=== PATIENT | female | born 1985 | race Caucasian/White ===

== ENCOUNTER 2018-07-18 16:18 | Inpatient (IN) | payer BC ==
[~2018-07-18] VITALS: Ht 167.6 cm; Wt 76.4 kg
[2018-07-18] VITALS (13 sets, daily range): BP systolic 109–130; BP diastolic 58–89; PULSE 69–86; TEMP 97.2–100
--- NOTE | 2018-07-18 16:10 | NUR ---
Pt arrives on unit from office per Dr. Bernstein with spouse. Orders for admission per provider. SVE /-3 with BS and STEVE during office visit with ctx. Changed into clean gown. EFM and toco applied. VSS. Admission assessment completed. Consents signed. IV started in LW. Labs drawn. LR and Yelena infusing. Pt tolerated well. Updated on POC. Oriented to room. Reactive FHR strip obtained. Pt request BB. Taken off monitors and on birthing ball.
[2018-07-18] MEDS ORDERED: PROFERRIN ES12 MG PO (16:38)
[2018-07-18] MEDS ORDERED: PRENATAL MVI (16:38)
[2018-07-18] MEDS ORDERED: OMEGA-3 1000 MG1 CAP PO (16:39)
[2018-07-18 17:15] LABS: BASO # 0.1 (0.0-0.2); BASO % 0.7 % (0.0-2.0); EOS # 0.1 (0.0-0.7); GRAN # 7.9 (1.4-6.5); GRAN % 68.6 % (42.2-75.2); HEMOGLOBIN 12.7 g/dl (12.5-16.0); LYMPH # 2.7 (1.2-3.4); LYMPH % 23.1 % (20.0-51.0); MEAN CELL VOLUME 92 fl (80.0-100.0); MEAN CORPUSCULAR HEMOGLOBIN 33 pg (27.0-31.0); MEAN CORPUSCULAR HGB CONC 36 g/dl (33.0-37.0); MEAN PLATELET VOLUME 11.8 fl (7.4-10.4); MONO # 0.7 (0.1-0.6); MONO % 5.6 % (1.7-9.3); PLATELET COUNT 188 K/mm3 (130-400); RED BLOOD COUNT 3.86 M/mm3 (4.10-5.30); REDCELL DISTRIBUTION WIDTH-CV 12.1 % (11.5-14.5)
[2018-07-18 17:20] LABS: HEMATOCRIT 35.6 % (37.0-47.0)
--- NOTE | 2018-07-18 18:15 | NUR ---
Report received from Rachael GREY. Pt in bed resting and wanting to ambulate when 30 minutes are completed. Plan of care explained to pt and questions answered. Call light within reach. 1847: FHR strip reactive. Pt off monitors to ambulate in hallway. Will continue to monitor.
--- NOTE | 2018-07-18 20:53 | NUR ---
Reactive FHR strip. Pt off monitors to use shower. SVE unchanged and feels hot on exam. Temp 99.4. Educated pt on waiting on shower at this time. Pt verbalizes understanding and questions answered. 2109: Pt assisted to LL position and monitors reapplied for closer monitoring. 2114: updated on pts status and orders received. See physican notification. 2121: New orders explained to pt and who verbalize understanding. Tylenol 1gram administered and LR bolus infusing without difficulties. Will continue to monitor. 2136: Pt feeling a lot of rectal pressure. Assisted to high mcneil position anf feeling some relief from pressure. Call light within reach. Will continue to monitor.
[2018-07-19] VITALS (14 sets, daily range): BP systolic 105–126; BP diastolic 51–98; PULSE 56–77; TEMP 97.5–98.7
--- NOTE | 2018-07-19 01:08 | NUR ---
Pt feeling a lot of pressure and urge to push. SVE 9/100/+1. Pt assisted to hands and knees position to help with some rectal pressure. 0127: Pt states she is feeling constant pressure even when she is not having contractions. SVE C/+2. Practive push completed at this time and pt moves vertex well. Plan of care explained to pt and family who verbalize understanding. 0131: called for delivery. See physican notification. RN remains at pts bedside assisting with pt to breath through contractions. 0144: at bedside for delivery. Pt assisted into footplates and prepped for delivery. Pt begins pushing with . 0158: Spontaneous vaginal delivery of viable male infant by . loose NC X1 reduced by . Mouth and nares suction per provider. Infant to mother's chest and care of assumed by Netta GREY. Cord clamped X2 and cut by pt's mother. 0201: Spontaneous delivery of intact placenta by . Pitocin started at 333mus/hr per protocol. Lidocaine administered vaginally for repair. Right periurethral and primary vaginal laceration repaired by . Fundus firm and midline. Bleeding minimal. Straight catherization with red jesu completed. Pericare provided. Pt repositioned in bed, pads changed and ice pack applied. Plan of care and safety precautions explained to pt who verberbalizes understanding. See labor summary and doctor dication. Call light within reach. 0245: Softball size clot noted with fundal message. Fundus firms up after message. Pitocin continuing to be administered per protocol. No free flow noted after clots. 0250: updated on pts bleeding. No new orders at this time. Pt updated on continuing to watch bleeding.
--- NOTE | 2018-07-19 04:20 | NUR ---
Pt wanting to move to room at this time. Fundus firm, midline and bleeding minimal. Pt assisted to EOB. Denies dizziness or lightheadedness. Pt ambulatory to bathroom, standby assist. Pt able to void. Pericare explained and provided. Mesh panties, pad, ice pack and tucks applied. Pt ambulatory to room 214 and oriented to room. Call light within reach.
--- NOTE | 2018-07-19 09:17 | NUR ---
Initial visit; Parents thanked [employer] for offering congratulations and God's blessings for the of their son. [employer] thanked family for choosing [facility].
[2018-07-20] MEDS ORDERED: IBU800 M1 PO (08:12)
[2018-07-20 08:45] VITALS: BP 118/75; PULSE 84; TEMP 97.8
[2018-07-20 15:49] VITALS: BP 98/66; PULSE 68; TEMP 97.7
[2018-07-20 20:00] VITALS: BP 105/77; PULSE 69; TEMP 97.9
[2018-07-21] VITALS: BP 111/69; PULSE 72; TEMP 98.7
[2018-07-21 04:00] VITALS: BP 88/54; PULSE 61; TEMP 97.6
[2018-07-21 08:08] VITALS: BP 111/75; PULSE 73
== END 2018-07-21 10:40 | disposition home or self-care (01) | DRG 806 ==
LOC: LDR 16:18 → OB 07-19 04:59
PROVIDERS: ADMIT Obstetrics & Gynecology
PROC: 10E0XZZ Delivery of Products of Conception, External Approach (ICD-10-PCS; principal; 2018-07-19)
PROC: 0UQMXZZ Repair Vulva, External Approach (ICD-10-PCS; 2018-07-19)
PROC: 0UQG7ZZ Repair Vagina, Via Natural or Artificial Opening (ICD-10-PCS; 2018-07-19)
DX: O77.0 Labor and delivery complicated by meconium in amniotic fluid (principal); O71.4 Obstetric high vaginal laceration alone; Z37.0 Single live birth; Z3A.38 38 weeks gestation of pregnancy; O71.82 Other specified trauma to perineum and vulva; O69.81X0 Labor and delivery complicated by cord around neck, without compression, not applicable or unspecified; O99.824 Streptococcus B carrier state complicating childbirth; B35.4 Tinea corporis; O99.02 Anemia complicating childbirth; D64.9 Anemia, unspecified
CPT/HCPCS: J2540; J2590; J3010; J7120

== ENCOUNTER 2020-08-03 07:46 | Inpatient (IN) | payer BC ==
[~2020-08-03] VITALS: Ht 167.6 cm; Wt 85.5 kg
[2020-08-03] VITALS (22 sets, daily range): BP systolic 102–162; BP diastolic 53–101; PULSE 70–106; TEMP 97.5–98.6
[~2020-08-03 07:46] MED LIST: IBU800 M1 PO; OMEGA-3 1000 MG1 CAP PO; PRENATAL MVI; PROFERRIN ES12 MG PO
--- NOTE | 2020-08-03 07:52 | NUR ---
Pt arrives on unit ambulatory with spouse. States possible SROM of clear fluid at 0400. Pt "felt a pop, there was warm fluid that was clear, I wore a pad and continued to have fluid." States ctx q 7 minutes that is rated 4-5/10. GFM. Denies vaginal bleeding. Changed into a clean gown. EFM and toco applied. VSS. Amniotest negative. SVE per this RN / with bloody show. Amniotest repeated and negative. Pt requests low intervention delivery. GBS+. Dr. Mercado notifed. Orders for ROM+. Pt updated on POC, verbalizes understanding. Agrees to care. ROM+ performed and sent to lab. Bed locked in low position. Call light within reach. No questions or concerns at this time.
[2020-08-03 09:00] LABS: BASO # 0.1 (0.0-0.2); BASO % 0.5 % (0.0-2.0); EOS # 0.1 (0.0-0.7); GRAN # 7.3 (1.4-6.5); GRAN % 73.5 % (42.2-75.2); HEMOGLOBIN 11.3 g/dl (12.5-16.0); LYMPH # 1.9 (1.2-3.4); LYMPH % 18.9 % (20.0-51.0); MEAN CELL VOLUME 92 fl (80.0-100.0); MEAN CORPUSCULAR HEMOGLOBIN 31 pg (27.0-31.0); MEAN CORPUSCULAR HGB CONC 34 g/dl (33.0-37.0); MEAN PLATELET VOLUME 10.5 fl (7.4-10.4); MONO # 0.5 (0.1-0.6); MONO % 5.4 % (1.7-9.3); PLATELET COUNT 213 K/mm3 (130-400); RED BLOOD COUNT 3.64 M/mm3 (4.10-5.30); REDCELL DISTRIBUTION WIDTH-CV 12.7 % (11.5-14.5)
[2020-08-03 09:01] LABS: HEMATOCRIT 33.3 % (37.0-47.0)
--- NOTE | 2020-08-03 09:16 | NUR ---
Dr. Mercado at bedside. SVE per provider /1. Per provider, pt ok to be taken off monitors for intermittent monitoring. Pt up to birthing ball.
--- NOTE | 2020-08-03 09:59 | NUR ---
Pt back to room from ambulation in the hallways. EFM and toco applied. VSS.
--- NOTE | 2020-08-03 14:40 | NUR ---
RN requested to unit. SVE per RN C/+2. Dr. Mercado requested to bedside. 1442-Dr. Mercado at bedside for delivery. Begins pushing with pt. of viable male attended by Dr. Mercado. Cord clamped x2 and cut from umbilicus. dried and placed on mother's abdomen. Care of infant to Julio Cesar Camejo RN. Apgars 8/9/9. 1447- placenta. Bleeding WNL. Fundus firm at umbilicus. Pitocin bolus infusing per protocol. Right labial laceration repaired per provider. Pericare provided. Ice pack applied. Pt updated on POC. Bed locked in low position. Call light within reach. No questions or concerns at this time.
[2020-08-04 00:30] VITALS: BP 110/57; PULSE 77; TEMP 98.4
[2020-08-04 04:00] VITALS: BP 121/66; PULSE 79; TEMP 98.2
--- NOTE | 2020-08-04 06:31 | NUR ---
REPORT RECEVIED FROM OFF GOING RNELY CARE TAKEN OVER BY THIS RN.
[2020-08-04 08:14] VITALS: BP 109/59; PULSE 91; TEMP 98.2
[2020-08-04] MEDS ORDERED: IBU600 MG PO (08:17)
[2020-08-04 13:10] VITALS: BP 115/71; PULSE 73; TEMP 97.7
[2020-08-04 15:51] VITALS: BP 111/65; PULSE 78; TEMP 98
[2020-08-04 19:55] VITALS: BP 104/68; PULSE 82; TEMP 98
[2020-08-05 07:30] VITALS: BP 106/74; PULSE 71; TEMP 97.3
[2020-08-05 11:06] VITALS: BP 114/57; PULSE 81; TEMP 97.8
--- NOTE | 2020-08-05 13:30 | NUR ---
Rests in bed, alert. Request pain medication. Ibuprofen 600 mg given per request and as ordered.
--- NOTE | 2020-08-05 14:00 | NUR ---
Discharge instructions for border status given. Verbalizes understanding. To border status.
== END 2020-08-05 14:00 | disposition home or self-care (01) | DRG 807 ==
LOC: LDRO 07:46 → LDR 08:07 → OB 17:00
PROVIDERS: Obstetrics & Gynecology; ADMIT Obstetrics & Gynecology
PROC: 10E0XZZ Delivery of Products of Conception, External Approach (ICD-10-PCS; principal; 2020-08-03)
PROC: 0UQMXZZ Repair Vulva, External Approach (ICD-10-PCS; 2020-08-03)
DX: O48.0 Post-term pregnancy (principal); Z37.0 Single live birth; O99.824 Streptococcus B carrier state complicating childbirth; Z3A.40 40 weeks gestation of pregnancy
CPT/HCPCS: J2540; J2590; J7120